=== PATIENT | female | born 1995 | race African-American/Black ===

== ENCOUNTER 2023-08-04 11:44 | Emergency (ER) | payer OTHER ==
[~2023-08-04] VITALS: Ht 149.9 cm; Wt 74.8 kg
[2023-08-04 11:45] VITALS: BP 124/74; TEMP 98.1; O2SAT 98
[2023-08-04 12:23] LABS: BASO % 0.4 % (0.0-1.0); EOS % 0.5 % (0.0-3.0); HEMATOCRIT 38.1 % (36.0-47.0); LYMPH # 2.1 10^3/uL (1.5-5.0); LYMPH % 25.6 % (24.0-44.0); MEAN CORPUSCULAR HEMOGLOBIN 30.4 pg (27.0-33.0); MEAN CORPUSCULAR HGB CONC 34.1 g/dl (32.0-36.5); MONO # 0.6 10^3/uL (0.0-0.8); NEUTROPHILS # 5.3 10^3/uL (1.5-8.5); NEUTROPHILS % 66.1 % (36.0-66.0); PLATELET COUNT, AUTOMATED 267 10^3/uL (150-450); RED BLOOD COUNT 4.28 10^6/uL (4.00-5.40)
[2023-08-04 12:40] LABS: LIPASE 26 U/L (12-53)
[2023-08-04 12:43] LABS: ALBUMIN 3.9 G/DL (3.2-5.2); ALKALINE PHOSPHATASE 68 U/L (46-116); ALT/SGPT 29 U/L (7.0-40); AST/SGOT 14 U/L (<34); BILIRUBIN,DIRECT 0.1 MG/DL (<0.4); BILIRUBIN,TOTAL 0.4 MG/DL (0.3-1.2); BLOOD UREA NITROGEN 9 MG/DL (9-23); CALCIUM LEVEL 9.1 MG/DL (8.5-10.1); CARBON DIOXIDE LEVEL 25 MMOL/L (20-31); CHLORIDE LEVEL 104 MMOL/L (98-107); CREATININE FOR GFR 0.62 MG/DL (0.55-1.30); GLOMERULAR FILTRATION RATE > 60.0 (>60); GLUCOSE, FASTING 83 MG/DL (60-100); POTASSIUM SERUM 3.9 MMOL/L (3.5-5.1); SODIUM LEVEL 138 MMOL/L (136-145)
[2023-08-04 12:55] LABS: HCG, SERUM QUANTITATIVE 68643.4 MIU/ML (<4.2)
[2023-08-04] MEDS: PROMETHAZINE 25MG/ML 1ML VIAL IV ONE (13:05)
[2023-08-04] MEDS ORDERED: ACET325C5 PO (15:04)
[2023-08-04] MEDS ORDERED: MULTTAB20 PO (15:04)
[2023-08-04] MEDS ORDERED: HOME MED LIST COMPLETE! XX SCH (15:05)
[2023-08-04] MEDS ORDERED: PROM12.54 PR (16:16)
== END 2023-08-04 16:53 | disposition home or self-care (01) ==
LOC: M ED 11:44
DX: O21.9 Vomiting of pregnancy, unspecified (principal); O20.9 Hemorrhage in early pregnancy, unspecified; Z79.1 Long term (current) use of non-steroidal anti-inflammatories (NSAID); Z79.810 Long term (current) use of selective estrogen receptor modulators (SERMs)
CPT/HCPCS: 76801; 80048; 80076; 81001; 83690; 84702; 85025; 87086; 93976; 96374; 99283; J2550

== ENCOUNTER 2023-08-18 09:19 | Emergency (ER) | payer OTHER ==
[~2023-08-18] VITALS: Ht 149.9 cm; Wt 72.9 kg
[~2023-08-18 09:19] MED LIST: ACET325C5 PO; MULTTAB20 PO; PROM12.54 PR
[2023-08-18 10:06] LABS: BASO % 0.4 % (0.0-1.0); EOS % 0.4 % (0.0-3.0); HEMATOCRIT 37.8 % (36.0-47.0); HEMOGLOBIN 12.9 g/dl (12.0-15.5); LYMPH # 2.3 10^3/uL (1.5-5.0); LYMPH % 25.5 % (24.0-44.0); MEAN CORPUSCULAR HEMOGLOBIN 30.3 pg (27.0-33.0); MEAN CORPUSCULAR HGB CONC 34.1 g/dl (32.0-36.5); MEAN CORPUSCULAR VOLUME 88.7 fl (80.0-96.0); MONO # 0.7 10^3/uL (0.0-0.8); MONO % 7.8 % (2.0-8.0); NEUTROPHILS % 65.2 % (36.0-66.0); PLATELET COUNT, AUTOMATED 260 10^3/uL (150-450); RED BLOOD COUNT 4.26 10^6/uL (4.00-5.40); WHITE BLOOD COUNT 9.2 10^3/uL (4.0-10.0)
[2023-08-18 10:29] LABS: LIPASE 25 U/L (12-53)
[2023-08-18 10:31] LABS: ALBUMIN 3.8 G/DL (3.2-5.2); ALKALINE PHOSPHATASE 67 U/L (46-116); ALT/SGPT 45 U/L (7.0-40); AST/SGOT 17 U/L (<34); BILIRUBIN,DIRECT 0.2 MG/DL (<0.4); BILIRUBIN,TOTAL 0.5 MG/DL (0.3-1.2); BLOOD UREA NITROGEN 7 MG/DL (9-23); CALCIUM LEVEL 8.8 MG/DL (8.5-10.1); CARBON DIOXIDE LEVEL 25 MMOL/L (20-31); CHLORIDE LEVEL 104 MMOL/L (98-107); CREATININE FOR GFR 0.66 MG/DL (0.55-1.30); GLOMERULAR FILTRATION RATE > 60.0 (>60); GLUCOSE, FASTING 78 MG/DL (60-100); SODIUM LEVEL 136 MMOL/L (136-145); TOTAL PROTEIN 7.1 G/DL (5.7-8.2)
[2023-08-18] MEDS: NS 1,000 ML IV ONE (11:23)
[2023-08-18] MEDS: METOCLOPRAMIDE INJ 10MG/2ML VIAL IV ONE (11:23)
[2023-08-18] MEDS ORDERED: REGL10TA6 PO (14:28)
[2023-08-18] MEDS ORDERED: PROM12.54 PR (14:28)
[2023-08-18] MEDS ORDERED: DICL10TA PO (14:28)
[2023-08-18 14:33] VITALS: BP 110/57; TEMP 98.6; O2SAT 98
== END 2023-08-18 14:36 | disposition home or self-care (01) ==
LOC: M ED 09:19
DX: O21.9 Vomiting of pregnancy, unspecified (principal); Z3A.09 9 weeks gestation of pregnancy; Z79.1 Long term (current) use of non-steroidal anti-inflammatories (NSAID); Z79.899 Other long term (current) drug therapy; Z79.810 Long term (current) use of selective estrogen receptor modulators (SERMs)
CPT/HCPCS: 80048; 80076; 81001; 83690; 85025; 96361; 96374; 99284; J2765

== ENCOUNTER → 2023-10-02 | Outpatient (CLI) | payer OTHER ==
[~2023-10-02] MED LIST changes: +DICL10TA PO; +REGL10TA6 PO
[2023-10-02 13:48] LABS: HEMATOCRIT 33.8 % (36.0-47.0); HEMOGLOBIN 11.2 g/dl (12.0-15.5); MEAN CORPUSCULAR HEMOGLOBIN 30.6 pg (27.0-33.0); MEAN CORPUSCULAR HGB CONC 33.1 g/dl (32.0-36.5); MEAN CORPUSCULAR VOLUME 92.3 fl (80.0-96.0); PLATELET COUNT, AUTOMATED 288 10^3/uL (150-450); RED BLOOD COUNT 3.66 10^6/uL (4.00-5.40); WHITE BLOOD COUNT 13.2 10^3/uL (4.0-10.0)
[2023-10-02 14:24] LABS: HIV 1&2 SCREEN NEGATIVE (NEGATIVE)
[2023-10-02 14:32] LABS: HEPATITIS C VIRUS ABY INDEX < 0.02 INDEX (<0.8)
[2023-10-02 15:13] LABS: GC DNA AMPLIFICATION NEGATIVE (NEGATIVE)
== END ==
LOC: M PLALAB 09:23
PROVIDERS: ATTEND Advanced Practice Midwife
DX: Z34.81 Encounter for supervision of other normal pregnancy, first trimester (principal)

== ENCOUNTER → 2023-11-12 | Outpatient (CLI) | payer OTHER | LOC: M RAD 13:23 | PROVIDERS: ATTEND Obstetrics & Gynecology | DX: Z34.92 Encounter for supervision of normal pregnancy, unspecified, second trimester (principal) ==

== ENCOUNTER → 2023-12-02 | Outpatient (REF) | payer OTHER ==
[2023-12-02 16:26] LABS: Trichomonas vaginalis (AMP) NOT DETECTED (NEGATIVE)
[2023-12-02 16:50] LABS: GC DNA AMPLIFICATION NEGATIVE (NEGATIVE)
== END ==
LOC: M SFHCWAGY 15:00
PROVIDERS: ATTEND Obstetrics & Gynecology
DX: Z11.3 Encounter for screening for infections with a predominantly sexual mode of transmission (principal)

== ENCOUNTER → 2024-01-02 | Outpatient (CLI) | payer OTHER ==
[2024-01-02 13:29] LABS: GLUCOSE CHALLENGE TEST 1 HOUR 112 MG/DL (LESS THAN 140); HEMATOCRIT 32.1 % (36.0-47.0); HEMOGLOBIN 10.5 g/dl (12.0-15.5); MEAN CORPUSCULAR HEMOGLOBIN 30.3 pg (27.0-33.0); MEAN CORPUSCULAR HGB CONC 32.7 g/dl (32.0-36.5); MEAN CORPUSCULAR VOLUME 92.8 fl (80.0-96.0); PLATELET COUNT, AUTOMATED 256 10^3/uL (150-450); RED BLOOD COUNT 3.46 10^6/uL (4.00-5.40)
[2024-01-02 14:04] LABS: HIV 1&2 SCREEN NEGATIVE (NEGATIVE)
[2024-01-02 14:12] LABS: HEPATITIS C VIRUS ABY INDEX < 0.02 INDEX (<0.8)
[2024-01-02 15:08] LABS: Trichomonas vaginalis (AMP) NOT DETECTED (NEGATIVE)
[2024-01-05 13:28] LABS: GC DNA AMPLIFICATION NEGATIVE (NEGATIVE)
== END ==
LOC: M PLALAB 09:20
PROVIDERS: ATTEND Obstetrics & Gynecology
DX: Z34.82 Encounter for supervision of other normal pregnancy, second trimester (principal)

== ENCOUNTER 2024-02-05 02:54 | Outpatient (CLI) | payer OTHER ==
[~2024-02-05] VITALS: Ht 149.9 cm; Wt 78.0 kg
[2024-02-05] MEDS ORDERED: HOME MED LIST COMPLETE! XX SCH (03:25)
[2024-02-05 05:22] LABS: Trichomonas vaginalis (AMP) NOT DETECTED (NEGATIVE)
[2024-02-05 05:46] LABS: GC DNA AMPLIFICATION NEGATIVE (NEGATIVE)
== END 2024-02-05 05:55 | disposition home or self-care (01) ==
LOC: M LDO 02:54
PROVIDERS: ATTEND Advanced Practice Midwife
DX: O26.893 Other specified pregnancy related conditions, third trimester (principal); N89.8 Other specified noninflammatory disorders of vagina; Z3A.32 32 weeks gestation of pregnancy
CPT/HCPCS: 59025; 87661; 87810; 87850; G0463

== ENCOUNTER → 2024-03-04 | Outpatient (REF) | payer OTHER | LOC: M PLALAB 10:59 | PROVIDERS: ATTEND Nurse Practitioner Family | DX: Z36.85 Encounter for antenatal screening for Streptococcus B (principal); Z3A.36 36 weeks gestation of pregnancy ==

== ENCOUNTER 2024-10-25 10:29 | Emergency (ER) | payer MEDICAID, OTHER ==
[~2024-10-25] VITALS: Ht 149.9 cm; Wt 69.5 kg
[2024-10-25 10:32] VITALS: BP 122/77; TEMP 97.9; O2SAT 98
[2024-10-25 12:49] LABS: HCG, SERUM QUALITATIVE NEGATIVE (NEGATIVE)
== END 2024-10-25 13:29 | disposition home or self-care (01) ==
LOC: M ED 10:29
DX: N92.6 Irregular menstruation, unspecified (principal)